=== PATIENT | female | born 1960 | race Caucasian/White ===

== ENCOUNTER → 2016-09-11 | Outpatient (CLI) | payer OTHER | LOC: CIMAGING 14:55 | PROVIDERS: ATTEND Family Medicine | DX: Z12.31 Encounter for screening mammogram for malignant neoplasm of breast (principal) | CPT/HCPCS: G0202 ==

== ENCOUNTER 2017-07-14 01:50 | Emergency (ER) | payer OTHER ==
[2017-07-14] MEDS ORDERED: FAMOTIDINE 20 MG TAB PO ONE (02:10)
[2017-07-14] MEDS ORDERED: diphenhydrAMINE 25 MG CAP PO ONE (02:10)
[2017-07-14] MEDS ORDERED: predniSONE 20 MG TAB PO ONE (02:10)
--- NOTE | 2017-07-14 02:18 | EDPHY ---
H & P Time Seen by Provider: 07/14/17 01:53 HPI/ROS: CC: yellow jacket sting to right 5th finger 24 hours ago HPI: This 57-year-old female presents to the emergency department today with pain, swelling and redness to her 5th finger on her right hand after being stung by a yellow jacket approximately 24 hr ago. She states she was reaching into the mailbox when it stung her finger possibly twice. It started swelling more today and turning a little red. She is going out of town in the morning and wanted to get checked. She doesn't like taking medications and has not taken any OTC medications. REVIEW OF SYSTEMS: Constitutional: No fever, no chills. ENT: No sore throat or throat swelling. Respiratory: No shortness of breath. Cardiac: No chest pain, no palpitations. Gastrointestinal: No abdominal pain. Musculoskeletal: No back pain. Skin: See HPI. Neurological: No dizziness or lightheadedness. Past Medical/Surgical History: PMH: HTN, pre-diabetes, hypothyroid PSH: pituitary adenoma, tonsils, hysterectomy, left rotator cuff ALLERGIES: Sulfa, PCN, Cephalexin Meds: Reviewed in nursing notes and include metformin, synthroid, lovastatin, triamterene/HCTZ, estrogen. Social History: Denies tobacco or marijuana products. Occasional ETOH. Smoking Status: Never smoked Physical Exam: General Appearance: Alert, no distress. Eyes: Pupils equal and round no pallor or injection. ENT, Mouth: Mucous membranes are moist. No posterior oropharyngeal abnormalities, no swelling. Uvula midline. Respiratory: There are no retractions, lungs are clear to auscultation. No rales, rhonchi, or wheezing. Cardiovascular: Regular rate and rhythm. No murmur. Neurological: Awake and alert, sensory and motor exams grossly normal. Skin: Warm and dry. Musculoskeletal: Neck is supple nontender. Extremities are symmetrical, full range of motion. Right fifth digit with STS. Erythema extending onto dorsum of hand. Minimal tenderness to palpation. CMS intact. No obvious retained stinger. Psychiatric: Patient is oriented X 3, there is no agitation. DIFFERENTIAL DIAGNOSIS: After history and physical exam differential diagnosis was considered for but not limited to: localized reaction to bee sting, retained stinger, cellulitis Allergies/Adverse Reactions: cephalexin monohydrate [From [facility]] Allergy (Severe, Verified 11/09/14 21:55) Penicillins Allergy (Intermediate, Verified 11/09/14 21:55) Rash Sulfa (Sulfonamide Antibiotics) Allergy (Intermediate, Verified 11/09/14 21:55) Rash Home Medications: Medication Instructions Recorded Estradiol [ESTRADIOL] 1 mg PO 12/17/11 Levothyroxine [Synthroid 100 mcg 150 mcg 12/17/11 (RX)] Lovastatin 40 mg PO 12/17/11 Triamterene/Hctz 37.5/25 [Dyazide 1 each PO DAILY 12/17/11 37.5/25 (RX)] metFORMIN HCL [Glucophage 500 mg 500 mg PO BIDMEAL 12/17/11 (RX)] Doxycycline Hyclate 100 mg PO BID 7 Days #14 capsule 07/14/17 predniSONE 20 mg PO BID #14 tablet 07/14/17 Medical Decision Making ED Course/Re-evaluation: The patient was seen and examined. Vital signs reviewed. Her blood pressure was elevated she was advised to follow up with the primary care provider regarding this. She was given a take-home pack of Benadryl, Pepcid, (and prednisone if needed). She will also take Motrin. RX for prednisone and doxycycline to start only if symptoms worsen. Instructions reviewed in depth with patient. All questions answered. Departure - Departure Disposition: Home, Routine, Self-Care Clinical Impression: Bee sting reaction Qualifiers: Encounter type: initial encounter Condition: Good Instructions: Insect Bite or Sting (ED), Prednisone (By mouth), Famotidine (By mouth), Diphenhydramine (By mouth) Additional Instructions: Elevate and ice as directed. Take diphenhydramine (Benadryl) and famotidine ( Pepcid) as directed. Take Motrin for pain since it also has an anti- inflammatory effect. If swelling worsens, take the Prednisone in addition as directed. If red streak form up your forearm, start the antibiotic (Doxycycline) and get rechecked. If increased swelling, increased pain, pallor, decreased sensation, etc. (signs of "compartment syndrome") get rechecked immediately as discussed. Referrals: Lupe Grullon MD [Medical Doctor] - Follow Up Only If Needed Prescriptions: Doxycycline Hyclate 100 mg PO BID 7 Days #14 capsule predniSONE 20 mg PO BID #14 tablet
[2017-07-14 02:49] VITALS: BP 144/98
== END 2017-07-14 02:44 | disposition home or self-care (01) ==
LOC: CED 01:50
DX: T63.441A Toxic effect of venom of bees, accidental (unintentional), initial encounter (principal); I10 Essential (primary) hypertension
CPT/HCPCS: J7512